=== PATIENT | female | born 1960 | race Asian ===

== ENCOUNTER 2018-01-10 22:18 | Emergency (ER) | payer OTHER ==
[~2018-01-10] VITALS: Ht 160 cm; Wt 49.9 kg
[2018-01-10] MEDS ORDERED: PANTOPRAZOLE 40 MG/10 ML VIAL IV STA (22:30)
[2018-01-10] MEDS ORDERED: MORPHINE SULFATE 4 MG/ML SYR/VIAL IV ONE (22:30)
[2018-01-10] MEDS ORDERED: SODIUM CHLORIDE 0.9% 1,000 ML IVB ONE (22:30)
[2018-01-10] MEDS ORDERED: ONDANSETRON HCL 4 MG/2 ML VIAL IV ONE (22:30)
[2018-01-10 23:25] LABS: Basophils # (auto) 0 uL; Basophils % (auto) 0.3 % (0.0-2.0); Eosinophils # (auto) 0 uL; Hematocrit 39.3 % (36.0-46.0); Lymphocytes # (auto) 0.6 uL; Lymphocytes % (auto) 7.1 % (10.0-50.0); Monocytes # (auto) 0.2 uL; Monocytes % (auto) 1.9 % (0.0-12.0); Neutrophils % (auto) 90.7 % (37.0-80.0); Platelet Count (auto) 245 10^3/uL (140-450); Red Blood Cells 4.18 10^6/uL (4.0-5.20); White Blood Cell 8.8 10^3/uL (4.4-10.8)
[2018-01-10 23:40] LABS: INR 1.08 (0.9-1.15); Partial Thromboplastin Time 24.7 sec (22.64-33.71); Prothrombin Time 11.8 sec (9.37-12.3)
[2018-01-11 00:01] LABS: BUN/Creatinine Ratio 22.7; Bilirubin, Total 0.6 mg/dL (0.2-1.0); Magnesium 1.9 mg/dL (1.6-2.6); Potassium 3.3 mmol/L (3.5-5.1); Total Protein 7.4 g/dL (6.4-8.2)
[2018-01-11] MEDS ORDERED: IOHEXOL 300 MG/ML 100ML BOTTLE IJ ONE (00:17)
[2018-01-11] MEDS ORDERED: PIPERACILLIN-TAZOB 3.375GM 50 ML IV ONE (02:15)
[2018-01-11] MEDS ORDERED: metroNIDAZOLE 500MG/100ML 100 ML IV ONE (02:15)
[2018-01-11] MEDS ORDERED: MORPHINE SULFATE 4 MG/ML SYR/VIAL IV ONE (02:15)
[2018-01-11] MEDS ORDERED: ONDANSETRON HCL 4 MG/2 ML VIAL IV ONE (02:15)
[2018-01-11 03:55] LABS: Urine Bacteria NONE SEEN /hpf (None Seen); Urine Blood Negative /uL (Negative); Urine Mucus FEW (None Seen); Urine Specific Gravity 1.049 (1.001-1.035); Urine WBC 2 /hpf (0 - 5)
[2018-01-11 04:40] VITALS: BP 136/66
== END 2018-01-11 02:55 | disposition short-term general hospital (02) ==
LOC: ER 22:18
DX: K56.2 Volvulus (principal); K55.049 Acute infarction of large intestine, extent unspecified
CPT/HCPCS: 36415; 74177; 76705; 80053; 81001; 82150; 83605; 83690; 83735; 85025; 85610; 85730; 94761; 96361; 96365; 96366; 96368; 96375; 96376; 99285; C9113; J2270; J2405; J2543; J3490; J7030; Q9967; 93005